=== PATIENT | male | born 1970 | race Caucasian/White ===

== ENCOUNTER 2024-03-11 18:44 | Emergency (ER) | payer OTHER, SELFPAY ==
[2024-03-11 18:47] VITALS: BP 171/101
--- NOTE | 2024-03-11 19:30 | ED.GENMED ---
History of Present Illness
General
Chief Complaint: Chest Pain
Time Seen by Provider: 03/11/24 19:30
History of Present Illness
History of Present Illness:
HPI: Patient presents with 1 week of left shoulder/left tricep/left sided chest discomfort. He saw his primary care doctor who suggested trying Aleve. He has been on blood pressure medication for the last 30 years and recently started an
additional blood pressure medication. He was able to mow the lawn in the heat the other day with no chest pain. He has no exertional symptoms. His pain is primarily constant but it does wax and wane for no apparent reason.
EXAM:
GENERAL: Well appearing in no distress
HEENT: Moist oral mucosa
CARDIOVASCULAR: No murmurs, normal heart rate, regular rhythm, No chest wall tenderness
PULMONARY: No respiratory distress, breath sounds are clear and equal
ABDOMEN: Soft with no peritoneal signs, no tenderness
NEUROLOGIC: Excellent strength all extremities, no coordination deficits
PSYCHIATRIC: Appropriate mental status, normal insight and judgement
EXTREMITIES: Nontender, no edema, moves all extremities equally, negative empty can test, no significant tenderness in the left shoulder region, fairly good active range of motion at the left shoulder
SKIN: No rash, no lesions
TIME OF INITIAL ENCOUNTER: 7:50 PM
NUMBER AND COMPLEXITY OF PROBLEMS ADDRESSED AT THE ENCOUNTER
� Chronic conditions affecting care: High blood pressure, hyperlipidemia
� Acute Exacerbation and/or Progression of Chronic Illness: This is an acute problem
� Differential Diagnosis includes: Musculoskeletal etiology, doubt septic joint based on physical examination, ACS unlikely given lack of exertional symptoms and he has a normal EKG
AMOUNT AND/OR COMPLEXITY OF DATA TO BE REVIEWED AND ANALYZED
� I performed an independent evaluation of and my interpretation is:
EKG: Sinus 66, normal axis, no acute ST abnormality
CT:
X-rays:
Laboratory Studies: Troponin unremarkable, CBC unremarkable
Other:
� Review of other/old records: The patient was seen here in the emergency department 2020 with chest pain and at that time had an unremarkable D-dimer and troponin
� Clinical information was obtained by an independent historian: None needed
� Prescriptions/Medications Considered but not given:
� Further testing considered but not performed:
RISK OF COMPLICATIONS AND/OR MORBIDITY OR MORTALITY OF PATIENT MANAGEMENT
� Social determinants of health affecting care: Lives at home
� Discussion with other providers:
� Escalation of care including admission/observation vs risk of discharge considered: The patient appears comfortable. He does not appear to be in any distress. His EKG is normal and his troponin is negative despite 1 week of
symptoms. Low suspicion for ACS. He is to follow with Dr. David as he is known to her from the past.
Past History
Past History
ED Past Medical History: HTN and Hypercholesterolemia
ED Past Surgical History: None
Social History
Tobacco: Non-smoker
Personal:
Phy Exam
Physical Exam
Physical Exam:
See HPI
Scores
Heart Score for Chest Pain Patients
STEMI patient?: Not applicable
Course
Orders/Labs/Results
Orders:
Orders
03/11/24 18:49
Electrocardiogram (*1) Urgent
Reason for Study: Chest Pain
EKG- Treatment ONCE
03/11/24 19:26
Complete Blood Count/With Diff Urgent
Comprehensive Metabolic Panel Urgent
Troponin I Urgent
Abnormal Lab Results
03/11/24
19:26
RBC 4.41 L 10^6/uL
(4.70-6.10)
Hct 38.9 L %
(39.0-52.0)
MCH 32.4 H pg
(27.0-31.0)
Lymphocytes % 18.5 L %
(20.5-51.1)
Monocytes % 9.5 H %
(1.7-9.3)
Glucose 101 H mg/dl
(70-99)
ALT 75 H U/L
(0-50)
03/11/24 19:26
03/11/24 19:26
Vital Signs
Initial and Last Documented VS:
Initial Vital Signs
Temp Pulse BP Pulse Ox
98.2 F 68 171/101 100
03/11/24 18:47 03/11/24 18:47 03/11/24 18:47 03/11/24 18:47
Last Documented Vital Signs
Temp Pulse BP Pulse Ox
98.2 F 68 151/93 100
03/11/24 18:47 03/11/24 18:47 03/11/24 20:22 03/11/24 18:47
*Critical Care Note
Total Time (30-74mins, 75-104mins- exclusive of procedures): Not Applicable
ED Attending Note
-
Portions of this chart may have been created with voice recognition software.� Occasional wrong word or��sound alike� substitutions may have occurred due to the inherent limitations of voice recognition software.
Discharge Plan
Departure
Patient Disposition: Home (Routine Discharge)
Date of Disposition: 03/11/24
Time of Disposition: 20:13
Patient with high blood pressure during this ER visit?: Yes
Discharge Problem:
Chest pain
Instructions: Chest Pain CBC Follow Up
Prescriptions:
No Action
atorvastatin 10 MG tablet
20 mg PO DAILY
olmesartan [Benicar] 40 MG tablet
40 mg PO DAILY
Hydrochlorothiazide
25 mg PO DAILY
Referrals:
Lexi David MD [Active] - Follow up in 2-3 days
Activity Restrictions/Additional Instructions:
The blood work and EKG showed no sign of heart attack. However since you do have some cardiac risk factors, I recommend that you be reevaluated by Dr. David. Your symptoms very well could be related to a musculoskeletal etiology such as a
cervical radiculopathy or an issue with the shoulder. For now, I recommend continuing the Aleve.
Interventions
Interventions:
*Risk Screen - Suicide Last Done: 03/11/24 20:32
*General Assessment Last Done: 03/11/24 18:47
*Neglect/Abuse Screening Last Done: 03/11/24 18:47
ED- Fall Risk Assessment Last Done: 03/11/24 20:23
*ED COVID-19 Vaccine History Last Done: 03/11/24 20:32
*Nursing Disposition Last Done: 03/11/24 20:32
ED- Cardiac Assessment Last Done: 03/11/24 20:23
Discharge Date and Time
Discharge Date/Time: 03/11/24 20:33
Print Language: YI
[2024-03-11 19:32] LABS: % Basophils 0.5 % (0-2); % Eosinophils 4.8 % (0-6); % Immature Granulocytes 0.3 % (0-0.5); % Lymphocytes 18.5 % (20.5-51.1); % Monocytes 9.5 % (1.7-9.3); % Neutrophils 66.4 % (42.2-75.2); Absolute Eosinophils 0.3 10^3/uL (0-0.7); Absolute Lymphocytes 1.2 10^3/uL (1.2-3.4); Absolute Monocytes 0.6 10^3/uL (0.1-0.6); Absolute Neutrophils 4.3 10^3/uL (1.4-6.5); Hematocrit 38.9 % (39.0-52.0); Hemoglobin 14.3 g/dL (13.0-18.0); Mean Corp Hgb Conc. 36.8 g/dL (33.0-37.0); Mean Corpuscular Hgb 32.4 pg (27.0-31.0); Mean Corpuscular Volume 88.2 fL (80.0-94.0); Mean Platelet Volume 9.3 fL (7.4-10.4); Nucleated Red Blood Cells % 0 % (-); Platelet Count 311 10^3/uL (130-400); Red Blood Cell Count 4.41 10^6/uL (4.70-6.10); Red Cell Dist. Width 12.4 % (11.5-14.5); White Blood Cell Count 6.5 10^3/uL (4.8-10.8)
[2024-03-11 19:57] LABS: Troponin I < 0.012 ng/ml
[2024-03-11 20:03] LABS: ALT (SGPT) 75 U/L (0-50); AST (SGOT) 43 U/L (17-59); Albumin 4.9 g/dl (3.5-5.0); Alkaline Phosphatase 100 U/L (38-126); Blood Urea Nitrogen 17 mg/dl (9-20); Calcium 10.1 mg/dl (8.4-10.2); Carbon Dioxide 25 mmol/L (22-30); Chloride 105 mmol/L (98-107); Glucose 101 mg/dl (70-99); Potassium 3.7 mmol/L (3.5-5.1); Sodium 139 mmol/L (135-145); Total Bilirubin 0.9 mg/dl (0.2-1.3); Total Protein 7.5 g/dl (6.3-8.2); eGFR > 60.00
[2024-03-11 20:22] VITALS: BP 151/93
== END 2024-03-11 20:33 | disposition home or self-care (01) ==
LOC: EMR 18:44
PROVIDERS: Emergency Medicine; EMERGENCY PHYSICIAN Emergency Medicine; FAMILY PHYSICIAN Student in an Organized Health Care Education/Training Program
DX: R07.89 Other chest pain (principal); I10 Essential (primary) hypertension; Z79.899 Other long term (current) drug therapy
CPT/HCPCS: 99283; 80053; 84484; 85025; 93005

== ENCOUNTER 2024-12-02 05:52 | Day surgery (SDC) | payer OTHER, SELFPAY ==
[2024-11-05 10:14] VITALS: BMI 32.3
[2024-11-05 10:36] LABS: % Basophils 0.8 % (0-2); % Immature Granulocytes 0.4 % (0-0.5); % Lymphocytes 19.7 % (20.5-51.1); % Monocytes 9.6 % (1.7-9.3); % Neutrophils 66.5 % (42.2-75.2); Absolute Eosinophils 0.1 10^3/uL (0-0.7); Absolute Lymphocytes 0.9 10^3/uL (1.2-3.4); Absolute Monocytes 0.5 10^3/uL (0.1-0.6); Absolute Neutrophils 3.1 10^3/uL (1.4-6.5); Hematocrit 41.4 % (39.0-52.0); Hemoglobin 14.7 g/dL (13.0-18.0); Mean Corp Hgb Conc. 35.5 g/dL (33.0-37.0); Mean Corpuscular Hgb 32.2 pg (27.0-31.0); Mean Corpuscular Volume 90.8 fL (80.0-94.0); Mean Platelet Volume 9.3 fL (7.4-10.4); Nucleated Red Blood Cells % 0 % (-); Platelet Count 298 10^3/uL (130-400); Red Blood Cell Count 4.56 10^6/uL (4.70-6.10); Red Cell Dist. Width 12.4 % (11.5-14.5); White Blood Cell Count 4.7 10^3/uL (4.8-10.8)
[2024-11-05 10:44] LABS: ALT (SGPT) 60 U/L (0-50); AST (SGOT) 31 U/L (17-59); Albumin 4.5 g/dl (3.5-5.0); Alkaline Phosphatase 78 U/L (38-126); Blood Urea Nitrogen 21 mg/dl (9-20); Calcium 10.1 mg/dl (8.4-10.2); Carbon Dioxide 29 mmol/L (22-30); Chloride 106 mmol/L (98-107); Estimated Creatinine Clearance 89 ml/min; Glucose 110 mg/dl (70-99); Potassium 4.2 mmol/L (3.5-5.1); Sodium 143 mmol/L (135-145); Total Bilirubin 1.5 mg/dl (0.2-1.3); Total Protein 7.2 g/dl (6.3-8.2); eGFR > 60.00
[2024-11-05 10:45] LABS: INR 1.15; PT 15.2 Sec (11.4-14.6)
[2024-12-02] VITALS (12 sets, daily range): BP systolic 113–159; BP diastolic 74–108
[2024-12-02 08:45] LABS: ACT-LR - POC 303 Seconds (116-155)
[2024-12-02 09:02] LABS: ACT-LR - POC 308 Seconds (116-155)
--- NOTE | 2024-12-02 09:15 | ITS.CL.ABL ---
[place] Team Leader - Ablation
Ablation
Procedure Report:
ELECTROPHYSIOLOGY ABLATION STUDY
DATE:: December 02, 2024�����������������������������REFERRING: Dr. Phyllis David
INDICATION: Paroxysmal supraventricular tachycardia in the form of atrial fibrillation.��
HISTORY: See H and P.��As above
ANTIARRHYTHMIC DRUG: Discussed class I class III antiarrhythmic patient opted for pulmonary vein isolation
PRE-PROCEDURE SCAR: No intracardiac thrombus on intracardiac ultrasound
PRESENTING RHYTHM: Sinus rhythm
'TIME-OUT':��called and confirmed.
SEDATION/ANESTHESIA:��provided via the anesthesia department using general anesthesia (LMA).
INTRAVENOUS/ARTERIAL ACCESS:
Right femoral venous - 8Fr
Left femoral venous - 8 Fr, 6 Fr
Ultrasound guidance for bilateral femoral vein access was utilized by me to obtain access with demonstration of normal anatomy
CHADS-VASC Score:
HAS-Bled Score
PROCEDURE:
1.��A decapolar CS catheter was placed within the CS for mapping and pacing.��This was also used as the reference catheter for the 3-D map.
2. The intracardiac ultrasound catheter was positioned in the RA to identify the FO for targeting of transseptal puncture, assist��in identification of the pulmonary vein ostia, monitoring pre and post ablation pulmonary vein flow velocities,
monitoring for 'bubble' formation during RF application as a sign of thermal injury,��and to monitor for pericardial effusion during mapping and ablation procedure.���Left atrial size, LV ejection fraction, and pulmonary vein flows were monitored
pre and post ablation procedure. The other valves were inspected and found to be free of significant regurgitation or stenosis.
3.��Half of the calculated heparin bolus was administered prior to the first transeptal puncture.��Transseptal puncture was performed to diagnose RA and LA pressure so that safety of LA mapping and ablation could be further assessed, and to access
the left atrium and pulmonary veins for mapping and ablation.��This entailed advancing an 16.8 Romanian sheath, RF wire with dilator into the superior vena cava and withdrawing both (monitoring intracardiac ultrasound, fluoroscopy and tip pressure)
with the tip oriented toward the atrial septum.��The fossa ovalis was engaged (indicated by sudden displacement of the sheath tip as well as tenting of the fossa seen on intracardiac ultrasound).��Left atrial access required a pass with the
Brockenbrough needle extended.��Left atrial catheter position was confirmed by pressure monitoring (RA mean pressure 8 mm Hg and LA mean pressure 14 mm Hg), LA saturation (99%),��as well as fluoroscopy.��The sheath was advanced over the dilator and
positioned in the left atrium.��This procedure was repeated for the Agilis sheath.��The remainder of the calculated heparin bolus was administered and heparin was
infused to maintain ACT at 300 -350 seconds throughout the case.
4.��RA pacing was performed via the proximal decapolar poles and LA pacing was performed via the distal decapolar poles.
5. A decapolar catheter was first positioned at the His position for His Bundle recording which was tagged via the 3-D Navex sytem, and then passed to the RVA for RV pacing and recording.
6. The multipolar catheter and the Penta spine catheter placed in each of the LIPV, LSPV, RSPV and the RIPV.��
7.��Next, a 3-D map was created using Navex.���A 3-D reconstructed CT image was compared to the 3-D Navex map to assist in anatomic interpretation, mapping and ablation.��The CT image and the NavX image were fused.
8. 45 lesions were given to the left atrium proper. All of in basket poses to the pulmonary veins with fluoroscopy post to the roof floor and posterior wall of the left atrium. This rendered entrance and exit block in all 4 pulmonary veins and
the posterior wall. Follow-up EP study with atrial extrastimuli, atrial burst pacing, and atrial pacing at AV Wenke block cycle length from the right atrium and left atrium did not induce any other tachyarrhythmia. Atrial ERP equal to AV shashank ERP.
9. Normal sinus node and AV node function noted. [id number] stitch was placed in each of the femoral veins. Prior history of vasectomy so no protamine was given.
TOTAL FLOURO TIME: 10.6 minutes 80 mGy
TOTAL RF DURATION: 0 minutes
REVERSAL OF HEPARIN: 0 mg of protamine, slow IV administration
COMPLICATIONS:
None
Intracardiac US shows no pericardial effusion post ablation.
SUMMARY:��
Complex left atrial mapping and ablation.
Isolation of all 4 pulmonary veins as above
RECOMMENDATIONS:
1. Ambulate in 4 hours
2. Resume anticoagulation
3.��Consider same-day discharge
4.��Outpatient follow-up with Dr. Wendy David
Copy to: Dr. Baljit Soto, Dr. Wendy David
[2024-12-02] MEDS: ANESTHETIC LOZENGE 1 LOZENGE PO (14:04)
--- NOTE | 2024-12-02 14:19 | W.PN.UPDATE ---
Update Note
Progress Note Update
Pt seen post PFA. Bilateral groin sites without ht/bleeding, non tender. OOB ambulating, urinating without difficulty. Post EKG NSR 72, no acute changes. Resume Eliquis tonight at usual time. Followup at [facility] as scheduled. Home today if groin
site/tele remain stable.
== END 2024-12-02 14:35 | disposition home or self-care (01) ==
LOC: CATH 05:52
PROVIDERS: ATTENDING PHYSICIAN Internal Medicine Cardiovascular Disease; FAMILY PHYSICIAN Student in an Organized Health Care Education/Training Program; OTHER PHYSICIAN Internal Medicine Cardiovascular Disease
DX: I48.0 Paroxysmal atrial fibrillation (principal); I47.19 Other supraventricular tachycardia; I10 Essential (primary) hypertension; E78.5 Hyperlipidemia, unspecified; G47.33 Obstructive sleep apnea (adult) (pediatric); E66.9 Obesity, unspecified; Z68.32 Body mass index [BMI] 32.0-32.9, adult; Z79.01 Long term (current) use of anticoagulants
CPT/HCPCS: C1732; C1894; C1730; C1892; C1759; 36415; 75572; 80053; 83735; 85025; 85347; 85610; 86850; 86900; 86901; 93005; 93656; 93657; C1733; C1766; Q9967

== ENCOUNTER → 2025-06-15 13:13 | Outpatient (REF) | payer OTHER, SELFPAY | LOC: RCS 13:13 | PROVIDERS: ATTENDING PHYSICIAN Internal Medicine Cardiovascular Disease; FAMILY PHYSICIAN Student in an Organized Health Care Education/Training Program | DX: R00.2 Palpitations (principal); I49.3 Ventricular premature depolarization; I48.0 Paroxysmal atrial fibrillation; I47.19 Other supraventricular tachycardia | CPT/HCPCS: 93017 ==